=== PATIENT | male | born 1970 | race Caucasian/White ===

== ENCOUNTER 2020-04-22 20:53 | Emergency (ER) | payer BC ==
[~2020-04-22] VITALS: Ht 175.3 cm; Wt 93.0 kg
[2020-04-22 21:05] VITALS: BP_SYST 129
--- NOTE | 2020-04-22 21:05 | NUR ---
Patient to ER bed 1 to gown for evaluation. Side rails up. Report given to Florentin.
--- NOTE | 2020-04-22 21:15 | NUR ---
RADHA TO ASSUME CARE, PT HERE FOR ABD PAIN W / N,V. COMMUNICATES CLEARLY IN FULL COMPLETE SENTENCES. C/O SEVERE ABD PAIN. HE RECEIVED COLONOSCOPY 4WEEKS AGO AND HAS HAD INTERMITTENT ABD PAIN. SEVERAL DAYS OF RELIEF BUT NOW SUDDEN INCREASE IN PAIN
--- NOTE | 2020-04-22 21:20 | NUR ---
DR DANIELS IN TO ASSESS
[2020-04-22] MEDS ORDERED: ONDANSETRON HCL 4 MG/2 ML VIAL IVP ONE (21:30)
[2020-04-22] MEDS ORDERED: NACL 0.9% 1,000 ML IV ONE (21:30)
[2020-04-22] MEDS ORDERED: MORPHINE 4 MG/ML INJ. SYRINGE IVP ONE (21:30)
[2020-04-22 21:32] LABS: BASOPHILS # (AUTO) 0.1 K/uL (0.0-0.2); BASOPHILS % (AUTO) 0.8 % (0.0-2.0); EOSINOPHILS # (AUTO) 0.1 K/uL (0.0-0.4); EOSINOPHILS % (AUTO) 0.8 % (0.0-4.0); HEMATOCRIT 43.2 % (36-54); HEMOGLOBIN 14.7 g/dL (14.0-18.0); LYMPHOCYTES # (AUTO) 3.2 K/uL (1.0-5.5); LYMPHOCYTES % (AUTO) 26.9 % (20.5-51.5); MEAN CORPUSCULAR HEMOGLOBIN 30 pg (27-31); MEAN CORPUSCULAR HGB CONC 34 % (32-36); MEAN CORPUSCULAR VOLUME 89 fL (79.0-98.0); MONOCYTES # (AUTO) 0.5 K/uL (0.0-1.0); MONOCYTES % (AUTO) 4.2 % (1.7-9.3); NEUTROPHILS # (AUTO) 8.1 K/uL (1.8-7.7); NEUTROPHILS % (AUTO) 67.3 % (40.0-70.0); PLATELET COUNT (AUTO) 206 K/uL (130-430); RED BLOOD CELL COUNT(AUTO) 4.84 MIL/uL (4.2-6.2)
--- NOTE | 2020-04-22 21:39 | NUR ---
ALERT, ANXIOUS, TACYPNEIC, LABS AND MEDICATED
[2020-04-22 21:51] LABS: CALCIUM 9.4 mg/dL (8.4-11.0); CREATININE 1.39 mg/dL (0.55-1.30); POTASSIUM 3.2 mmol/L (3.5-5.1)
[2020-04-22 22:05] LABS: ALBUMIN 4.6 g/dL (3.4-4.8)
[2020-04-22] MEDS ORDERED: KETOROLAC TROMETHAMINE 30 MG VIAL IVP ONE (22:15)
[2020-04-22] MEDS ORDERED: DICYCLOMINE HCL 20 MG/2 ML AMP IM ONE (22:15)
--- NOTE | 2020-04-22 22:48 | NUR ---
STATED FEELING BETTER, PAIN TOLERABLE, SKIN WARM AND DRY
[2020-04-22 23:30] VITALS: BP_SYST 107
[2020-04-22] MEDS ORDERED: POTASSIUM CHLORIDE 20 MEQ/PKT PACKET PO ONE (23:30)
--- NOTE | 2020-04-22 23:30 | NUR ---
Patient given written and verbal discharge instructions and verbalizes understanding. DR. FRANCES LOPEZ MD discussed with patient the results and treatment provided. Patient in stable condition. ID arm band removed. IV catheter removed intact and dressing applied, no active bleeding. Rx of BENTYL given. Patient educated on pain management and to follow up with PMD. Pain Scale 0/10. Opportunity for questions provided and answered. Medication side effect fact sheet provided.
== END 2020-04-22 23:30 | disposition home or self-care (01) ==
LOC: SED 20:53
DX: R10.13 Epigastric pain (principal); E78.5 Hyperlipidemia, unspecified
CPT/HCPCS: 36415; 80053; 83690; 85025; 96361; 96372; 96374; 96375; 99284; J0500; J1885; J2270; J2405; J7030

== ENCOUNTER 2020-04-24 21:33 | Emergency (ER) | payer BC ==
[~2020-04-24] VITALS: Ht 175.3 cm; Wt 92.5 kg
[2020-04-24 21:35] VITALS: BP_SYST 154
--- NOTE | 2020-04-24 21:45 | NUR ---
RECEIVED AND IN ROOM, RADHA TO ASSUME CARE. AMBULATED STEADY, NO DISTRESS. DENIES CP/SOB. SKIN WARM AND DRY. COMMUNICATES CLEARLY IN FULL COMPLETE SENTNECES. PT STATED HE WAS SEEN BY MASSAGE THERAPY INSTRUCTOR TODAY AND CAME IN FOR PAIN. WAS SEEN HERE 2 DAYS AGO AND TONIGHT HE STATED PAIN HAS IMPROVED AND LESS SEVERE. BM TODAY REPORTED IT WAS NORMAL
--- NOTE | 2020-04-24 21:53 | NUR ---
DR LIN IN TO ASSESS
[2020-04-24] MEDS ORDERED: DIPHENHYDRAMINE INJ 50 MG/ML VIAL IVP ONE (22:15)
[2020-04-24] MEDS ORDERED: FAMOTIDINE PF 20 MG/2 ML VIAL IVP ONE (22:15)
[2020-04-24] MEDS ORDERED: NACL 0.9% 1,000 ML IV ONE (22:15)
[2020-04-24] MEDS ORDERED: MORPHINE 2 MG/ML INJ. SYRINGE IVP ONE (22:15)
[2020-04-24 22:27] LABS: BASOPHILS # (AUTO) 0.2 K/uL (0.0-0.2); BASOPHILS % (AUTO) 2.7 % (0.0-2.0); EOSINOPHILS # (AUTO) 0.3 K/uL (0.0-0.4); EOSINOPHILS % (AUTO) 3.1 % (0.0-4.0); HEMATOCRIT 41.7 % (36-54); HEMOGLOBIN 14.4 g/dL (14.0-18.0); LYMPHOCYTES # (AUTO) 1.2 K/uL (1.0-5.5); LYMPHOCYTES % (AUTO) 13.1 % (20.5-51.5); MEAN CORPUSCULAR HEMOGLOBIN 31 pg (27-31); MEAN CORPUSCULAR HGB CONC 34 % (32-36); MEAN CORPUSCULAR VOLUME 90 fL (79.0-98.0); MONOCYTES # (AUTO) 0.4 K/uL (0.0-1.0); NEUTROPHILS # (AUTO) 6.9 K/uL (1.8-7.7); NEUTROPHILS % (AUTO) 77.1 % (40.0-70.0); PLATELET COUNT (AUTO) 170 K/uL (130-430); RED BLOOD CELL COUNT(AUTO) 4.66 MIL/uL (4.2-6.2); WHITE BLOOD COUNT (AUTO) 8.9 K/uL (4.8-10.8)
--- NOTE | 2020-04-24 22:27 | NUR ---
ALERT, CALM, MEDICATED ORDERED, NO DISTRESS, LABS SENT. ULTRASOUND PENDING
--- NOTE | 2020-04-24 22:34 | NUR ---
Received report from SUKHJINDER Lerma.
[2020-04-24 22:45] LABS: BILIRUBIN,URINE NEGATIVE (NEGATIVE); BLOOD, URINE NEGATIVE (NEGATIVE); CLARITY/URINE CLEAR (CLEAR); COLOR,URINE YELLOW (YELLOW); GLUCOSE,URINE NEGATIVE (NEGATIVE); KETONES,URINE NEGATIVE (NEGATIVE); LEUKOCYTE ESTERASE ,URINE NEGATIVE (NEGATIVE); NITRITE, URINE NEGATIVE (NEGATIVE); PH,URINE 7.5 (5.0-8.0); PROTEIN URINE NEGATIVE (NEGATIVE); UROBILINOGEN,URINE 0.2 (0.2-1.0)
--- NOTE | 2020-04-24 23:00 | NUR ---
Patient transported to radiology via wheelchair, accompanied by Chopper Operator.
[2020-04-24 23:04] LABS: CALCIUM 9.2 mg/dL (8.4-11.0); CREATININE 1.33 mg/dL (0.55-1.30); POTASSIUM 3.6 mmol/L (3.5-5.1)
[2020-04-24 23:09] LABS: ALBUMIN 4.3 g/dL (3.4-4.8); TOTAL BILIRUBIN 1.6 mg/dL (0.0-1.0)
--- NOTE | 2020-04-24 23:14 | NUR ---
Patient came back from Ultrasound room.
--- NOTE | 2020-04-24 23:22 | NUR ---
ER Dr. Soto at bedside to explain treatment plan.
--- NOTE | 2020-04-24 23:43 | NUR ---
Patient given written and verbal discharge instructions and verbalizes understanding. ER MD discussed with patient the results and treatment provided. Patient in stable condition. ID arm band removed. IV catheter removed intact and dressing applied, no active bleeding. Rx of [place] given. Patient educated on pain management and to follow up with PMD. Pain Scale 1/10. Opportunity for questions provided and answered. Medication side effect fact sheet provided.
[2020-04-24 23:44] VITALS: BP_SYST 148
== END 2020-04-24 23:44 | disposition home or self-care (01) ==
LOC: SED 21:33
DX: K80.80 Other cholelithiasis without obstruction (principal); R10.13 Epigastric pain; E78.5 Hyperlipidemia, unspecified
CPT/HCPCS: 36415; 76700; 80053; 81003; 83690; 85025; 96361; 96374; 96375; 99284; J1200; J2270; J3490; J7030